=== PATIENT | female | born 1930 | race Caucasian/White ===

== ENCOUNTER 2017-02-01 19:46 | Emergency (ER) | payer OTHER ==
[~2017-02-01] VITALS: Ht 154.9 cm; Wt 56.7 kg
--- NOTE | ~2017-02-01 | EKG ---
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 : 1930 Requested By: Doa Gabriel Order Number: [id number] MD: Alverto Choi Measurements Intervals [place] Rate: 75 P: 40 SC: 185 QRS: -20 QRSD: 94 T: 59 QT: 408 QTc: 456 Interpretive Statements Sinus rhythm Nonspecific ST and T wave abnormality Inferior infarct, old Compared to ECG 10/02/2007 08:24:13 Nonspecific change in the ST and T-wave segments criteria for inferior infarct now present Electronically Signed On 02-04-2017 12:38:34 CDT by Alverto Choi [email or web address] <ELECTRONICALLY SIGNED> By: Alverto Choi MD, [facility] 02/04/17 1238 15 15 Alverto Choi MD, [facility] /EPI
[2017-02-01 20:26] LABS: ABSOLUTE NEUTROPHILS 4.6 thou/uL (1.4-8.2); BASOPHILS 1.4 % (0.0-2.0); EOSINOPHILS 2.3 % (0.0-3.0); HEMATOCRIT 36.8 % (37.0-47.0); HEMOGLOBIN 12.9 gm/dL (12.0-15.0); LYMPHOCYTES 21.5 % (24.0-44.0); MCH 33.7 pg (26.0-34.0); MCV 96.3 fL (80.0-100.0); MONOCYTES 10.7 % (1.0-8.0); PLATELET COUNT 277 thou/uL (150-400); POLYS 64.1 % (36.0-66.0); RBC 3.82 mil/uL (4.20-5.00); RDW 13.3 % (10.5-14.5); WBC 7.2 thou/uL (4.0-11.0)
[2017-02-01 20:29] LABS: MANUAL DIFF NO
[2017-02-01] MEDS ORDERED: OCUVITE TABLET1 EAC1 PO (20:31)
[2017-02-01] MEDS ORDERED: VITAMIN E400 UNIT PO (20:32)
[2017-02-01] MEDS ORDERED: ZOCOR20 MG PO (20:37)
[2017-02-01] MEDS ORDERED: LASIX 40 MG TAB40 M2 PO (20:37)
[2017-02-01 20:38] LABS: ANION GAP 13 mmol/L (7-16); BUN 13 mg/dL (7-18); CALCIUM 9.5 mg/dL (8.5-10.1); CHLORIDE 95 mmol/L (98-107); CO2 25 mmol/L (21-32); CREATININE 0.9 mg/dL (0.6-1.0); GLUCOSE 101 mg/dL (74-106); POTASSIUM 3.2 mmol/L (3.5-5.1); SODIUM 133 mmol/L (136-145)
[2017-02-01] MEDS ORDERED: KLOR-CON 1010 MEQ PO (20:38)
[2017-02-01] MEDS ORDERED: UNICOMPLEX M TA1 TA1 PO (20:39)
[2017-02-01] MEDS ORDERED: HYDROXYCHLOROQ200 M1 PO (20:39)
[2017-02-01] MEDS ORDERED: ASPIR 8181 MG PO (20:40)
[2017-02-01 20:46] LABS: ALBUMIN 3.8 g/dL (3.4-5.0); ALKALINE PHOSPHATASE 85 U/L (46-116); MAGNESIUM 1.8 mg/dL (1.8-2.4); SGOT 24 U/L (15-37); SGPT 18 U/L (30-65); TOTAL BILIRUBIN 0.4 mg/dL (<0.1-1.0); TOTAL PROTEIN 7.5 g/dL (6.4-8.2); TROPONIN-I < 0.04 ng/mL (<0.04-0.07)
[2017-02-01 22:53] VITALS: BP 148/76
== END 2017-02-01 22:56 | disposition home or self-care (01) ==
LOC: ER 19:46
PROVIDERS: Emergency Medicine
DX: S02.2XXA Fracture of nasal bones, initial encounter for closed fracture (principal); I10 Essential (primary) hypertension; F10.99 Alcohol use, unspecified with unspecified alcohol-induced disorder; Z90.49 Acquired absence of other specified parts of digestive tract; Z85.41 Personal history of malignant neoplasm of cervix uteri; Z90.12 Acquired absence of left breast and nipple; Z88.8 Allergy status to other drugs, medicaments and biological substances; Z98.890 Other specified postprocedural states; W18.39XA Other fall on same level, initial encounter; Y93.01 Activity, walking, marching and hiking; Y92.89 Other specified places as the place of occurrence of the external cause; Y99.8 Other external cause status

== ENCOUNTER → 2017-03-04 | Outpatient (CLI) | payer OTHER ==
[~2017-03-04] MED LIST: ASPIR 8181 MG PO; HYDROXYCHLOROQ200 M1 PO; KLOR-CON 1010 MEQ PO; LASIX 40 MG TAB40 M2 PO; OCUVITE TABLET1 EAC1 PO; UNICOMPLEX M TA1 TA1 PO; VITAMIN E400 UNIT PO; ZOCOR20 MG PO
== END ==
LOC: RAD 01:04
DX: Z12.31 Encounter for screening mammogram for malignant neoplasm of breast (principal)

== ENCOUNTER → 2017-12-04 | Outpatient (CLI) | payer OTHER ==
--- NOTE | ~2017-12-04 | PFR/MVV ---
[facility] [place] [address] PULMONARY FUNCTION MVV/REPORT Name: ALEXANDRO MEYER Room #: [facility]#: [id number] Admission: 12/04/17 Attend Phys: Lavell Jules MD Discharge: Date of : [birth year] Report #: [id number] THIS REPORT FOR: //name// >> SPIROMETRY: (BTPS) Height: in cm Weight: lbs kg Exam Date: PRE-RX POST-RX PRED BEST %PRED BEST %PRED %CHG FVC LITERS . . . . . . FEV1 LITERS . . . . . . FEV1/FVC % . . . . . . QBX81-09% L/Sec . . . . . . PEF L/SEC . . . . . . FEF50/FIF50 UNITLESS . . . . . . MVV L/Min . . . f 1/Min . . . >> LUNG VOLUMES: (BTPS) PRE-RX POST-RX PRED AVG %PRED AVG %PRED %CHG VC Liters . . . . . . TLC Liters . . . . . . RV Liters . . . . . . RV/TLC % . . . . . . FRC PL Liters . . . . . . FRC N2 Liters . . . . . . ERV Liters . . . . . . IC Liters . . . . . . >> DIFFUSION: DLCO ml/Min/mmHg . . . . . . DL Kerrie ml/Min/mmHg . . . . . . DLCO/VA ml/Min/mmHg . . . . . . VA Liters . . . . . . COMMENTS: COMMENTS: >> RESISTANCE: [facility] [address] [place] [address] PULMONARY FUNCTION MVV/REPORT Name: ALEXANDRO MEYER Room #: [facility]#: [id number] Admission: 12/04/17 Attend Phys: Lavell Jules MD Discharge: Date of : [birth year] Report #: [id number] PRE-RX PRED AVG %PRED Raw Total cmH20/L/Sec . . . Raw Insp cmH20/L/Sec . . . Raw Exp cmH20/L/Sec . . . Raw cmH20/L/Sec . . . Gaw L/Sec/cmH20 . . . sRaw cmH20 Sec . . . sGaw l/cmH20 Sec . . . Vtq Liters . . . # = OUTSIDE 95% CONFIDENCE INTERVAL CALIBRATION: PRED: 3.00 ACTUAL: EXP 3.01 INSP 3.02 [id number]-[id number] [facility]- [id number] >> INTERPRETATION/IMPRESSION: CC: Lavell Jules DATE OF SERVICE: 12/04/2017 Full pulmonary function study reveals hyperinflation of total lung capacity and residual volume consistent with significant emphysema. However, lung volumes on spirometry are significantly reduced suggesting reduced vital capacity without evidence for airflow obstruction. The lung volumes did improve dramatically with bronchodilators, making me suspicious that maybe some of the spirometry data initially was inaccurate; however, the flow volume loops do show findings of airflow obstruction consistent with obstructive lung disease. DLCO severely reduced. OVERALL IMPRESSION: Difficult to interpret baseline spirometry, however, lung volumes are hyperinflated, and there is suggestion of airflow obstruction that improves with bronchodilators. This is most consistent with some form of severe obstructive lung disease, would correlate clinically further or request repeat spirometry alone to further evaluate. By: Chaparro Lozada MD /nt
--- NOTE | ~2017-12-04 | 2DMMODE ---
[facility] [place] [address] 2 D/M-MODE ECHOCARDIOGRAM Name: ALEXANDRO MEYER Room #: REG [facility]#: [id number] Admission: 12/04/17 Attend Phys: Ariel Mckeon Discharge: Date of : [birth year] Date of Service: 12/04/17 1618 Report #: [id number] THIS REPORT FOR: //name// APPROVED REPORT Study performed: 12/04/2017 11:05:58 EXAM: Comprehensive 2D, Doppler, and color-flow Echocardiogram Patient Location: Echo lab Status: routine BSA: 1.42 HR: 75 bpm BP: 149/79 mmHg Other Information Study Quality: Good Indications Dyspnea 2D Dimensions RVDd: 32.48 mm LVEF(%): 53.31 (>50%) IVSd: 11.49 (7-11mm) LVOT Diam: 18.82 (18-24mm) LVDd: 34.46 mm PWd: 10.53 (7-11mm) Ascending Ao: 47.28 (22-36mm) LVDs: 25.25 (25-40mm) Aortic Root: 29.33 mm Chahal's LVEF: 53.31 % Volumes Left Atrial Volume (Systole) Single Plane 4CH: 45.20 mL Single Plane 2CH: 33.97 mL LA ESV Index: 30.00 mL/m2 Aortic Valve AoV Peak Prasanna.: 2.64 m/s AO Peak Gr.: 16.47 mmHg LVOT Max P.46 mmHg AO Mean Gr.: 14.70 mmHg LVOT Mean P.45 mmHg AO V2 Mean: 1.80 m/s LVOT Max V: 1.02 m/s AO V2 VTI: 54.02 cm LVOT Mean V: 0.75 m/s GREG (VTI): 1.19 cm2 LVOT V1 VTI: 23.04 cm GREG Vmax: 1.07 cm2 SV (LVOT): 64.05 mL [facility] [place] [address] 2 D/M-MODE ECHOCARDIOGRAM Name: ALEXANDRO MEYER Room #: [facility]#: [id number] Admission: 12/04/17 Attend Phys: Ariel Mckeon Discharge: Date of : [birth year] Date of Service: 12/04/17 1618 Report #: [id number] Mitral Valve E/A Ratio: 0.8 MV Decel. Time: 298.01 ms MV E Max Prasanna.: 0.94 m/s MV A Prasanna.: 1.20 m/s MV PHT: 86.42 ms IVRT: 115.34 ms Pulmonary Valve PV Peak Prasanna.: 0.99 m/s PV Peak Gr.: 3.93 mmHg Pulmonary Vein P Vein S: 0.83 m/s P Vein A: 0.26 m/s P Vein D: 0.52 m/s P Vein A Dur.: 198.4 msec P Vein S/D Ratio: 1.60 Tricuspid Valve TR Peak Prasanna.: 3.69 m/s RAP Estimate: 5.00 mmHg TR Peak Gr.: 54.59 mmHg PA Pressure: 60.00 mmHg Left Ventricle The left ventricle is normal size. There is normal LV segmental wall motion. There is normal left ventricular wall thickness. The left ventricular systolic function is normal. LVEF is 55-60%. Grade I - abnormal relaxation pattern. Right Ventricle The right ventricle is normal size. The right ventricular systolic function is normal. Atria Left atrium is dilated. The right atrium size is normal. Aortic Valve Aortic valve is calcified. Mild aortic regurgitation. Mild to moderate aortic stenosis. Calculated aortic valve area is 1.1cm2 with maximum pressure gradient of 28 mmHg and mean pressure gradient of 15 mmHg. Mitral Valve Moderate mitral annular calcification. Mitral leaflet sclerosis Mild mitral regurgitation. No evidence of mitral valve stenosis. Tricuspid Valve [address] [address] 2 D/M-MODE ECHOCARDIOGRAM Name: ALEXANDRO MEYER Room #: REG [facility].#: [id number] Admission: 12/04/17 Attend Phys: Ariel Mckeon Discharge: Date of : [birth year] Date of Service: 12/04/17 1618 Report #: [id number] The tricuspid valve is normal in structure. Trace tricuspid regurgitation. Pulmonic Valve The pulmonary valve is normal in structure. Trace pulmonic regurgitation. Great Vessels The aortic root is normal in size. 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 IVC is normal in size and collapses >50% with inspiration. Pericardium There is no pericardial effusion. Critical Notification Critical Value: Yes Physician Notified Date: 12/04/2017 <Conclusion> The left ventricular systolic function is normal. There is normal LV segmental wall motion. LVEF is 55-60%. Mild diastolic dysfunction Left atrium is dilated. Aortic valve is calcified. Mild to moderate aortic stenosis. Mild insufficiency Calculated aortic valve area is 1.1cm2 with maximum pressure gradient of 28 mmHg and mean pressure gradient of 15 mmHg. Moderate mitral annular calcification. Mitral leaflet sclerosis. Mild mitral regurgitation. 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 Cannot rule out linear denstity in ascending aorta/Type A dissection. There is no pericardial effusion. <ELECTRONICALLY SIGNED> By: Alverto Choi MD, [facility] 12/04/17 1618 1618 1618 Alverto Choi MD, FACC /INF
== END ==
LOC: CV 07:49 → PULREHAB 08:56 → CV 10:45
DX: I08.0 Rheumatic disorders of both mitral and aortic valves (principal)